=== PATIENT | male | born 1945 | race Caucasian/White ===

== ENCOUNTER 2016-10-28 12:13 | Emergency (ER) | payer MEDICARE ==
[~2016-10-28] VITALS: Ht 180.3 cm; Wt 110.0 kg
[~2016-10-28 12:13] MED LIST: ADVI200C9 PO; B-COTAB41 PO; CALCTAB10 PO; CEPH500C3 PO; CO Q100C PO; DIGO0.25 PO; DILT240C7 PO; FLAG500T PO; GING550C PO; HYDR200T42 PO; LISI-590 PO; METO100T9 PO; OXYC15TA PO; SAW450CA2 PO; SOMA350T PO; TAB-TAB PO; VITA100018 PO; VITA500T83 PO; WARF5TAB PO; [UNRECOGNIZED DRUG - CODE] IV
[2016-10-28] MEDS ORDERED: HYDROmorphone HCL PF 1 MG/ML VIAL ONE (12:33)
[2016-10-28 12:42] VITALS: BP 155/87; PULSE 80; RESP 22; TEMP 98.5; O2SAT 97
[2016-10-28] MEDS ORDERED: HYDROmorphone HCL PF 1 MG/ML VIAL IV PUSH ONE ×2 (12:45→16:00)
--- NOTE | 2016-10-28 13:35 | RADRPT ---
EXAM DATE/TIME: 10/28/2016 13:11 [facility] COMPARISON: No previous studies available for comparison. INDICATIONS : Fall pain shoulder with limited motion. MEDICAL HISTORY : None. SURGICAL HISTORY : None. ENCOUNTER: Initial ACUITY: 1 day PAIN SCORE: 10/10 LOCATION: Right shoulder FINDINGS: Examination of the shoulder demonstrates humeral head to be quite high riding suggesting prior rotato r cuff tear. There is a large osteophyte projecting off the humeral head as well as degenerative stewart ges within the a.c. joint. No acute fracture is seen. The visualized right lung apex is clear. CONCLUSION: 1. Arthritic changes within the right shoulder as above. 2. No definite fracture identified. Celso Brothers MD on October 28, 2016 at 13:33 Board Certified Radiologist. This report was verified electronically.
--- NOTE | 2016-10-28 13:50 | RADRPT ---
EXAM DATE/TIME: 10/28/2016 13:24 [facility] COMPARISON: No previous studies available for comparison. INDICATIONS : Fall pain MEDICAL HISTORY : None. SURGICAL HISTORY : None. ENCOUNTER: Initial ACUITY: 1 day PAIN SCORE: 2/10 LOCATION: Right wrist FINDINGS: Three view examination of the right wrist demonstrates no soft tissue swelling, dislocation, or fract ure. The carpal bones are in normal alignment. The joint spaces are maintained. Bony mineralizatio n is normal. Marked atherosclerotic disease. CONCLUSION: Unremarkable examination of the right wrist. Brenden Rivas MD on October 28, 2016 at 13:47 Board Certified Radiologist. This report was verified electronically.
--- NOTE | 2016-10-28 13:50 | RADRPT ---
EXAM DATE/TIME: 10/28/2016 13:25 [facility] COMPARISON: No previous studies available for comparison. INDICATIONS : Fall pain with loss of motion. MEDICAL HISTORY : None. SURGICAL HISTORY : None. ENCOUNTER: Initial ACUITY: 1 day PAIN SCORE: 9/10 LOCATION: Right elbow. FINDINGS: Two view examination of the right elbow demonstrates no soft tissue swelling, joint effusion, fractur e or dislocation. Bony mineralization is normal. CONCLUSION: Unremarkable limited examination of the right elbow. Brenden Rivas MD on October 28, 2016 at 13:48 Board Certified Radiologist. This report was verified electronically.
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
[2016-10-28] MEDS ORDERED: CALC-131 PO (14:34)
[2016-10-28] MEDS ORDERED: GING550C PO (14:34)
[2016-10-28] MEDS ORDERED: WARF-23 PO (14:34)
[2016-10-28] MEDS ORDERED: LISI10TA3 PO (14:34)
[2016-10-28] MEDS ORDERED: DILT-48 PO (14:34)
[2016-10-28] MEDS ORDERED: VITA1000 PO (14:34)
[2016-10-28] MEDS ORDERED: COQ-100C2 PO (14:34)
[2016-10-28] MEDS ORDERED: OXYC-395 PO (14:34)
[2016-10-28] MEDS ORDERED: C 50TAB PO (14:34)
[2016-10-28] MEDS ORDERED: SAW450CA2 PO (14:34)
[2016-10-28] MEDS ORDERED: B COTAB3 PO (14:34)
[2016-10-28] MEDS ORDERED: PLAQ200T PO (14:34)
[2016-10-28] MEDS ORDERED: TOPR100T PO (14:34)
[2016-10-28] MEDS ORDERED: MULT-135 PO (14:34)
[2016-10-28] MEDS ORDERED: SOMA350T PO (14:34)
[2016-10-28] MEDS ORDERED: ADVI200C5 PO (14:34)
[2016-10-28] MEDS ORDERED: DIGO0.25 PO (14:34)
[2016-10-28] MEDS ORDERED: TOPR50TA PO (14:34)
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
[2016-10-28 17:20] VITALS: RESP 18
== END 2016-10-28 17:19 | disposition home or self-care (01) ==
LOC: NEPE 12:13
DX: S42.254A Nondisplaced fracture of greater tuberosity of right humerus, initial encounter for closed fracture (principal); Z79.01 Long term (current) use of anticoagulants; I48.91 Unspecified atrial fibrillation; I10 Essential (primary) hypertension; F17.210 Nicotine dependence, cigarettes, uncomplicated; W01.0XXA Fall on same level from slipping, tripping and stumbling without subsequent striking against object, initial encounter; Y92.008 Other place in unspecified non-institutional (private) residence as the place of occurrence of the external cause
CPT/HCPCS: 29240; 73030; 73060; 73070; 73110; 96374; 96376; 99284; J1170